=== PATIENT | male | born 1935 | race Caucasian/White ===

== ENCOUNTER 2019-09-21 18:47 | Inpatient (IN) ==
[2019-09-21] MEDS ORDERED: ALUMINUM/MAGNESIUM SUSP 30 ML UDC PO PRN (20:07)
[2019-09-21] MEDS ORDERED: ONDANSETRON INJ 2 MG/ML 2 ML VIAL IV PRN (20:07)
[2019-09-21] MEDS ORDERED: POLYETHYLENE (MIRALAX) 17 GM PACK PO PRN (20:07)
[2019-09-21] MEDS ORDERED: NITROGLYCERIN SL 0.4 MG/TAB TAB SL PRN (20:07)
--- NOTE | 2019-09-21 20:07 | History & Physical Report ---
Date of Service September 21, 2019 Assessment & Plan (1) Acute kidney injury: Patient has acute kidney injury and typically takes Bumex and captopril. These medications are held. Given the onset of his edema on presentation we will only use very low flow IV fluid overnight and reassessing his renal function in the morning. We will check a urine for active sediment. If his renal function does not improve perhaps a renal ultrasound could evaluate for chronic kidney disease or obstructive uropathy as he is of the age to possibly have that his bicarbonate is reasonable and his creatinine although 5.0 is not out of the normal range and as we hold his CAR inhibitor this may improve (2) Bradycardia: Regarding the patient's bradycardia verapamil and metoprolol will be held if hypertension becomes an issue we can use hydralazine. Patient will have a L[place] screen [place] have remember being tested for Lyme disease and that also did not notice a TSH on his intake labs. His electrolytes are replete otherwise. 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 He typically only wears oxygen at night he does typically however take inhalers including Advair Serevent and as needed albuterol as needed these will be continued. (4) GERD (gastroesophageal reflux disease): Currently his reflux disease is on Protonix 40 (5) Sleep apnea: Patient says he wears a CPAP machine at night cannot recall his Pott's pressure of water but he does have 2 L bleed in oxygen which we will continue here (6) Coronary artery disease: Patient recalls having a cardiac stent about 3 years ago. He is on aspirin and Plavix these will be continued as well as atorvastatin 80 for sec ondary risk prevention both for cardiovascular and cerebrovascular disease. However we are holding his beta-devon at this time I will be back up IV metoprolol if needed if the patient does run fast (7) Hypertension: For the patient's history of hypertension many of his antihypertensive medications are going to be held at this time we will offer hydralazine as needed and PRN metoprolol. He will however continue on his Hytrin at bedtime which could help with any urinary outflow tract obstruction (8) History of CVA (cerebrovascular accident): Patient has a history of stroke he says he had complete recovery he will maintain his antiplatelet agents and statin (9) Sarcoidosis: (10) DVT prophylaxis: Heparin to be used for DVT prophylaxis with concern for renal dysfunction (11) Colon cancer: (12) History of Billroth I operation: Admission and Anticipated Discharge Date Admission Date: September 21, 2019 History of Present Illness Primary Care Provider: Joss Vasques 84-year-old male answer from [place] emergency department where he presented with dizziness was found to have slightly worsening renal function with a creatinine 2.4 and be a junctional bradycardia at a rate of 50 with a sustained blood pressure. According to the emergency room doctor the tester rocket engine/hospitalist on duty did not feel comfortable keeping the patient in their facility they did not have access to specialist and requested transfer. Emergency room doctor conversed with me and said the patient was stable at this point time did not require any immediate attention and did recommend possibly hydrating the patient and following his laboratories at their facility however this was refused. I did accept the patient for observation I was concerned that this was a lateral transfer. Patient self is in no distress he is doing slightly better than when he presented to the emergency department their work-up included laboratories which showed a creatinine of 2.4 potassium 5.0 bicarb 26 stable CBC stable liver function tests normal magnesium negative troponin EKG with sinus bradycardia narrow complex a BNP of 1080 CT head negative for acute changes but with chronic volume loss Dopplers of lower extremities without DVT as patient has some swelling in his right leg which is chronic and a chest x-ray showing old scarring changes from his history of sarcoidosis. Past Med/Surg History Family History (Updated 09/21/19 @ 20:01 by Reji Wang MD) Father Coronary heart disease Social History (Updated 09/21/19 @ 20:01 by Reji Wang MD) current occupational status: retired Feels Safe at Home: Yes Smoking Status: Never smoker Hx Alcohol Use: No Review of Systems Review of Systems: Mild distress and fatigue complaints of some lightheadedness no headache, blurry or double vision no speech or swallowing issues no chest pain, pressure or palpitations He does have some baseline shortness of breath, but no cough or wheezes no abdominal pain, nausea or vomiting, diarrhea or constipation no dysuria, hematuria or frequency no focal joint pain has baseline right lower extremity swelling for many years no back pain or cva tenderness Patient has some recent right lower extremity wounds no focal signs of weakness or numbness or altered sensation no complaints or anxiety or depression. Physical Exam Physical Exam: The patient appeared well nourished and normally developed. He has some mild tachypnea at rest which he says is normal for him Vital signs as documented. Head exam is normocephalic atraumatic no scleral icterus Neck is without JVD, thyromegaly, or carotid bruits. Lungs are clear to auscultation, no focal loss of breath sounds Cardiac exam, bradycardic cardiac with a easily heard gallop and systolic ejection murmur Abdominal exam reveals normal bowel sounds, soft non tender, no masses Extremities are mild to moderately edematous right greater than left and both pedal pulses are normal. Neurologic exam is alert and oriented, no focal loss of strength or sensation Skin is with bruising and some open areas to the anterior right chambers with dressing in place chronic venous stasis changes is also seen to his lower extremities Psychologically is without concerns for anxiety or depression PG Care Time/CCT Total # of Minutes Spent Total Time Spent with Patient: Total time spent is greater than 50% in coordination of care (as documented) at patient's floor/unit and/or counseling patient: Coding Level of Care Code 78385 OBS Care - Level 3 Diagnoses Acute kidney injury N17.9 Bradycardia R00.1 Chronic respiratory failure with hypoxia J96.11 GERD (gastroesophageal reflux disease) K21.9 Sleep apnea G47.30 Coronary artery disease I25.10 Hypertension I10 History of CVA (cerebrovascular accident) Z86.73 Sarcoidosis D86.9 DVT prophylaxis Z29.9 Colon cancer C18.9 History of Billroth I operation Z98.890
[2019-09-21] MEDS ORDERED: METOPROLOL TARTRATE 1 MG/ML VIAL IV PRN (20:10)
[2019-09-21] MEDS ORDERED: SODIUM CHLORIDE 0.9% 1000ML 1,000 ML IV SCH (20:15)
[2019-09-21] MEDS ORDERED: PATIENT'S ALLERGY INFO NEEDS ENTERED SCH (20:30)
[2019-09-21] MEDS ORDERED: PATIENT'S HEIGHT AND/OR WEIGHT NEEDED SCH (20:30)
[2019-09-21] MEDS ORDERED: IPRATROPIUM BROMIDE/ALBUTEROL respimat INH INH SCH (21:00)
[2019-09-21] MEDS: ACETAMINOPHEN 325 MG TAB PO PRN (22:12)
[2019-09-21] MEDS: HEPARIN SOD 5,000 UNIT/0.5 ML VIAL SQ SCH (23:06)
[2019-09-22] MEDS: IPRATROPIUM BROMIDE HFA INHALER INH SCH ×5 (01:22→18:57)
[2019-09-22] MEDS: ALBUTEROL HFA 8 GM INHALER INH SCH ×5 (01:23→18:58)
[2019-09-22 02:25] LABS: Eosinophils # (auto) 0.04 K/uL (0-0.5); Eosinophils % (auto) 0.7 %; Hematocrit (blood only) 35.3 % (42-52); Hemoglobin 11.6 g/dL (14.0-18.0); Immature Granulocytes # (auto) 0.02 K/uL (0.00-0.02); Immature Granulocytes % (auto) 0.4 %; Lymphocytes # (auto) 0.78 K/uL (1.2-3.4); Lymphocytes % (auto) 14.2 %; Mean Corpuscular Hemoglobin 32.5 pg (25-34); Mean Corpuscular Hgb Conc 32.9 g/dL (32-36); Mean Corpuscular Volume 98.9 fL (80-100); Mean Platelet Volume 9.6 fL (7.4-10.4); Monocytes # (auto) 0.48 K/uL (0.11-0.59); Monocytes % (auto) 8.7 %; Neutrophils # (auto) 4.19 K/uL (1.4-6.5); Platelet Count 100 K/uL (130-400); RDW Coefficient of Variation 15.5 % (11.5-14.5); RDW Standard Deviation 55.8 fL (36.4-46.3); Red Blood Count 3.57 M/uL (4.7-6.1); White Blood Count 5.51 K/uL (4.8-10.8)
[2019-09-22 02:39] LABS: BUN Creatinine Ratio 15.4 (10-20); Calcium 8.1 mg/dl (8.5-10.1); Creatinine Clr Calc Pharmacy 20.1 ml/min; Est GFR (African American) 25.6; Est GFR (Non-African American) 22.1; Magnesium 2.4 mg/dl (1.8-2.4); Potassium 4.7 mmol/L (3.5-5.1)
[2019-09-22 02:50] LABS: Phosphorus 4.9 mg/dl (2.5-4.9); Thyroid Stimulating Hormone 2.09 uIu/ml (0.300-4.500)
[2019-09-22 04:01] LABS: Appearance Urine Cloudy (Clear); Bilirubin Urine Negative (Negative); Blood Urine Negative (Negative); Color Urine Dark Yellow; Epithelial Cell Urine Auto >30 /lpf (0-5); Glucose Urine UA Negative (Negative); Ketones Urine Trace (Negative); Leukocyte Esterase Urine 2+ (Negative); Nitrite Urine Negative (Negative); Protein Urine Negative (Negative); Urobilinogen Urine Negative (Negative); WBC Urine Automated >30 /hpf (0-5)
[2019-09-22 04:25] LABS: Calcium Oxalate Crystals Urine Present (None Prsent); Cast Urine Automated >30 /lpf (0-5)
[2019-09-22 04:26] LABS: Bacteria Urine Automated 1+ (Negative); RBC Urine Automated 0-4 /hpf (0-4)
[2019-09-22 06:47] LABS: BUN Creatinine Ratio 15.5 (10-20); Calcium 8.4 mg/dl (8.5-10.1); Creatinine Clr Calc Pharmacy 22.8 ml/min; Est GFR (African American) 29.4; Est GFR (Non-African American) 25.4
[2019-09-22 06:57] LABS: Thyroid Stimulating Hormone 1.54 uIu/ml (0.300-4.500)
[2019-09-22] MEDS: ASPIRIN 81 MG ECTAB PO SCH (07:53)
[2019-09-22] MEDS: FLUTICASONE/VILANTEROL 100/25MCG 14 PUFFS/INHALER INH SCH (07:53)
[2019-09-22] MEDS: HEPARIN SOD 5,000 UNIT/0.5 ML VIAL SQ SCH ×2 (07:53→20:44)
[2019-09-22] MEDS: CLOPIDOGREL BISULFATE 75 MG TAB PO SCH (07:54)
[2019-09-22 08:07] LABS: Lyme Ab IgG w/WB Rflx Negative (Negative); Lyme Ab IgM w/WB Rflx Negative (Negative)
[2019-09-22] MEDS ORDERED: PANTOprazole 40 MG TAB PO SCH (09:00)
--- NOTE | 2019-09-22 09:31 | CT Scan Report ---
ABDOMEN AND PELVIS CT WITHOUT CONTRAST CT DOSE: 695.20 mGy.cm HISTORY: Acute kidney injury. acute kidney injury, eval renal stone/obstruction TECHNIQUE: Multiaxial CT images of the abdomen and pelvis were performed without contrast. A dose lo wering technique was utilized adhering to the principles of ALARA. COMPARISON STUDY: None. FINDINGS: Small bilateral pleural effusions. Pleural thickening with increased enhancement is noted t he right lung base which is favored to be a chronic etiology. Calcified hilar and subcarinal lymph no louise compatible with prior granulomatous disease. Parenchymal calcifications of the right lung base ar e also noted with groundglass, interstitial and alveolar opacities suggestive of atelectasis with ple ural parenchymal scarring. Additionally, there is mild right greater than left intralobular septal th ickening. Scattered bibasilar pulmonary nodules measure up to 4 mm. Extensive coronary artery calcifi cations. Cardiomegaly. Trace pericardial effusion. There is no pneumatosis or pneumoperitoneum identi fied. Spleen is enlarged measuring up to 15.2 cm. Indeterminate 1.2 cm hypodense lesion involves the superi or medial aspect of the spleen on image 21 series 2. Limited evaluation of the solid abdominal organs without the use of IV contrast. The liver, adrenal glands and pancreas appear unremarkable. Cholelit hiasis without definite CT evidence of acute cholecystitis. There is trace free fluid noted within th e mekhi hepatis and also within the bilateral pericolic gutters. Bilateral cortical thinning of the kidneys with nonspecific bilateral perinephric stranding. Probable cyst of the superior pole left kidney posteriorly, 2.5 cm. Probable cyst of the inferior pole left k idney, 3.5 cm. Probable cyst of the inferior pole right kidney. No ureteral calculi or obstructive ur opathy. Decompressed or bladder with mild wall thickening and trabeculation. Mild prostamegaly. Small fat filled right inguinal hernia. Extensive calcified plaque of the abdominal aorta. There is wall thickening with apparent peripheral calcifications noted within the distribution of the gastric pylorus, image 113 series 3. Mild adjacent stranding with a few prominent lymph nodes measur ing up to 8 mm. Small lateral diverticulum. No bowel obstruction. Mild fecal retention. Colonic diver ticulosis without acute diverticulitis. Postoperative changes of the right hemicolon suggestive of pa rtial right hemicolectomy with ileocolic anastomosis. Mild body wall edema. Tiny fat filled periumbil ical hernia. Bones appear intact. Degenerative changes of the spine, pelvis and hips. IMPRESSION: 1. No renal calculi or obstructive uropathy. 2. Mild prostamegaly. Partial distention of the urinary bladder with wall thickening suggests sequela of chronic bladder outlet obstruction. Correlate with urinalysis. 3. Wall thickening with mild surrounding stranding involves the gastric pylorus. Additionally, there are adjacent mildly prominent lymph nodes. This finding may reflect an area of gastritis, however cou ld be evaluated with endoscopy to exclude an underlying mucosal lesion. 4. No bowel obstruction. 5. Colonic diverticulosis without acute diverticulitis. 6. Small pleural effusions. Pleural thickening and enhancement of the right lung base may be on a chr onic basis. 7. Prior granulomatous disease. 8. Interstitial, groundglass and alveolar opacities of the right lung base are suggestive of probable atelectasis with pleural parenchymal scarring. A superimposed infectious or inflammatory pneumonitis would be difficult to exclude. 9. Cholelithiasis. 10. Additional findings as above. ACT 112: Negative or not required by law. The above report was generated using voice recognition software. It may contain grammatical, syntax o r spelling errors. Electronically signed by: Josiah Henson M.D. 09/22/2019 9:30 AM
--- NOTE | 2019-09-22 12:18 | Electrocardiogram Report ---
Test Reason : Blood Pressure : / mmHG Vent. Rate : 072 BPM Atrial Rate : 072 BPM P-R Int : 258 ms QRS Dur : 110 ms QT Int : 472 ms P-R-T Axes : 083 091 017 degrees QTc Int : 516 ms Sinus rhythm with 1st degree A-V block Rightward axis Prolonged QT Abnormal ECG When compared with ECG of 22-SEP-2019 01:33, (unconfirmed) Sinus rhythm has replaced Atrial fibrillation Vent. rate has increased BY 25 BPM Confirmed by Froy Hood ([id number]) on 09/22/2019 12:18:14 PM Referred By: Reji Wang Confirmed By:Froy Hood
--- NOTE | 2019-09-22 12:18 | Electrocardiogram Report ---
Test Reason : Blood Pressure : / mmHG Vent. Rate : 047 BPM Atrial Rate : 047 BPM P-R Int : 000 ms QRS Dur : 102 ms QT Int : 554 ms P-R-T Axes : 000 079 028 degrees QTc Int : 490 ms Poor data quality, interpretation may be adversely affected Atrial fibrillation with slow ventricular response Prolonged QT Abnormal ECG No previous ECGs available Confirmed by Froy Hood ([id number]) on 09/22/2019 12:18:07 PM Referred By: Reji Wang Confirmed By:Froy Hood
--- NOTE | 2019-09-22 12:43 | Hospitalist Progress Note ---
Date of Service September 22, 2019 Assessment & Plan (1) Atrial fibrillation with slow ventricular response: when patient presented to [facility] he was bradycardic. he had been taking large doses of metoprolol and verapamil at home. these meds were held upon arrival at [facility]. also upon arrival here he was in slow a.fib. at some point last evening he converted to NSR but continued with brief episodes of junctional rhythm. will ask [facility] Cardiology to consult regarding the slow a.fib, junctional rhythms, etc. will obtain echo to assess LV function as well as valve function given the loud murmur heard on exam. continue telemetry. continue to hold AV marilyn agents. K, mag, TSH, and lyme all noted to be normal. (2) Junctional rhythm: as above in "a fib" (3) Bradycardia: IMPROVED today with holding AV marilyn agents (metoprolol, verapamil). TSH wnl. lyme Ab's negative. see discussion above re: a.fib, etc. suspect his weakness, etc was due in part to the significant bradycardia seen yesterday. (4) Acute kidney injury: No obstruction seen on CT today. Cr modestly improved to 2.2 today following 1 L of saline overnight. Would not give additional fluids in light of CT showing pulmonary edema and low- normal O2 sats. His baseline Cr is uncertain. I have requested records from [facility] for comparison. Repeat BMP am. Cont to hold CAR inhibitor. (5) Sarcoidosis: Known h/o such. Follows with pulmonary in [place]. Check sed rate and crp in am. CT chest today appears to show old, chronic findings some of which might be 2nd to sarcoid. Will obtain records from pulmonary office in [place]. (6) GERD (gastroesophageal reflux disease): cont PPI but increase to BID dosing given the abnormal gastric wall seen on CT abd/pelvis today. (7) Sleep apnea: Cont CPAP at HS with O2 blended to maintain O2 sats >88% while sleeping. (8) Coronary artery disease: Cont asa. Cont plavix. Cont statin. stent in the past (3 yrs ago?). 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 metoprolol on hold due to bradycardia. no ischemic symptoms at this time. (9) Hypertension: Holding CAR inhibitor due to TANNER. Holding BB and CCB due to bradycardia. Could start amlodipine 5mg daily for BP control. (10) History of CVA (cerebrovascular accident): Confirmed by his son during my phone discussion. Cont asa, statin, and plavix for secondary prevention. (11) Colon cancer: s/p hemicolectomy. CT today shows clean anastomosis. (12) History of Billroth I operation: reason? details? son was unaware of this. (13) UTI (urinary tract infection): start rocephin daily follow culture (14) Abnormal chest CT: ?pneumonia process or are findings chronic? rocephin for UTI will cover for atypical coverage add doxy 100 BID (15) DVT prophylaxis: Heparin SC BID updated son by phone - Ed Miranda - 09/21 request PT, OT lm change observation status to full admission I certify that the inpatient services were ordered in accordance with Medicare regulations governing the order. This includes certification that hospital inpatient services are reasonable and necessary and in the case of services not specified as inpatient-only under 42 CFR 419.22(n), that they are appropriately provided as inpatient services in accordance to with the 2-midnight benchmark under 43 CFR 412.3(e) Admission and Anticipated Discharge Date Admission Date: September 21, 2019 Subjective patient feeling better today. he has good appetite, better energy, and simply feels more like himself. when I asked him what was bothering him yesterday he said "when I woke up yesterday I just didn't feel good." he could not be specific with what was ailing him. denies any dyspnea today. denies chest pain. denies abdominal pain. denies N/V. states he does NOT follow with a machine shop supervisor. does have case consultant in [facility] [address] [facility]? Review of Systems Constitutional: + fatigue; no fever, no chills and no anorexia Respiratory: no cough Cardiovascular: no chest pain Gastrointestinal: no abdominal pain, no nausea and no vomiting Physical Exam Constitutional: no acute distress and no altered mental status ENMT: external ear and nose normal, oropharynx normal Respiratory: no respiratory distress Auscultation: + diminished lung sounds (bases) and + crackles (fine, right base ) Cardiovascular: Rate/Rhythm: regular rate and regular rhythm Heart Sounds: normal S1, normal S2 and + murmur (3-4, holosystolic, Left mid sternal border ) Vessels: posterior tibial pulses present and dorsalis pedis pulses present; no JVD Extremities: no edema Gastrointestinal (Abdomen): normal bowel sounds, soft, nontender, no hepatosplenomegaly Inspection/Auscultation: + abdomen distended Skin: venous stasis changes b/l legs; 2 ulcerations on right distal chambers, both covered w/ optifoams Psychiatric: A+Ox3, euthymic affect Results & Data Results & Data ([facility]) Vital Signs (Past 12 Hours) Vital Signs Temp Pulse Pulse Pulse Resp BP BP 09/22/19 11:21 87 18 09/22/19 11:17 36.4 C L 80 20 153/74 H 09/22/19 09:00 09/22/19 08:00 70 09/22/19 07:32 36.2 C L 76 18 176/77 H 09/22/19 07:20 76 18 09/22/19 03:35 60 18 09/22/19 03:18 36.4 C L 55 L 20 125/74 09/22/19 01:28 18 09/22/19 01:27 44 L 18 09/22/19 01:18 36.6 C 45 L 45 L 18 Pulse Ox Pulse Ox 09/22/19 11:21 89 L 09/22/19 11:17 90 09/22/19 09:00 93 09/22/19 08:00 09/22/19 07:32 92 09/22/19 07:20 91 09/22/19 03:35 94 09/22/19 03:18 92 09/22/19 01:28 98 09/22/19 01:27 98 09/22/19 01:18 100 Laboratory Results Laboratory Results - last 24 hr 09/22/19 09/22/19 09/22/19 02:10 02:10 03:27 WBC 5.51 RBC 3.57 L Hgb 11.6 L Hct 35.3 L MCV 98.9 MCH 32.5 MCHC 32.9 RDW Std Deviation 55.8 H RDW Coeff of Gokul 15.5 H Plt Count 100 L MPV 9.6 Immature Gran % (Auto) 0.4 Neut % (Auto) 76.0 Lymph % (Auto) 14.2 [place] % (Auto) 8.7 Eos % (Auto) 0.7 Baso % (Auto) 0.0 Neut # (Auto) 4.19 Lymph # (Auto) 0.78 L [place] # (Auto) 0.48 Eos # (Auto) 0.04 Baso # (Auto) 0.00 Immature Gran # (Auto) 0.02 Sodium 143 Potassium 4.7 Chloride 112 H Carbon Dioxide 27 Anion Gap 4.0 BUN 39 H Creatinine 2.56 H Est Cr Clr Drug Dosing 20.1 Est GFR ( Amer) 25.6 Est GFR (Non-Af Amer) 22.1 BUN/Creatinine Ratio 15.4 Glucose 99 Calcium 8.1 L Phosphorus 4.9 Magnesium 2.4 TSH 2.090 Urine Color Dark Yellow Urine Appearance Cloudy A Urine pH 5.0 Ur Specific [place] 1.020 Urine Protein Negative Urine Glucose (UA) Negative Urine Ketones Trace H Urine Blood Negative Urine Nitrite Negative Urine Bilirubin Negative Urine Urobilinogen Negative Ur Leukocyte Esterase 2+ H Urine WBC (Auto) >30 H Urine RBC (Auto) 0-4 U Hyaline Cast (Auto) >30 H U Epithel Cells (Auto) >30 H Urine Bacteria (Auto) 1+ H Urine Crystals Not Reportable Calcium Oxalate Crystal Present A Lyme Disease IgG Ab Lyme Disease IgM Ab 09/22/19 09/22/19 05:25 05:25 WBC RBC Hgb Hct MCV MCH MCHC RDW Std Deviation RDW Coeff of Gokul Plt Count MPV Immature Gran % (Auto) Neut % (Auto) Lymph % (Auto) [place] % (Auto) Eos % (Auto) Baso % (Auto) Neut # (Auto) Lymph # (Auto) [place] # (Auto) Eos # (Auto) Baso # (Auto) Immature Gran # (Auto) Sodium 142 Potassium 4.0 Chloride 110 H Carbon Dioxide 25 Anion Gap 8.0 BUN 35 H Creatinine 2.28 H Est Cr Clr Drug Dosing 22.8 Est GFR ( Amer) 29.4 Est GFR (Non-Af Amer) 25.4 BUN/Creatinine Ratio 15.5 Glucose 92 Calcium 8.4 L Phosphorus Magnesium TSH 1.540 Urine Color Urine Appearance Urine pH Ur Specific [place] Urine Protein Urine Glucose (UA) Urine Ketones Urine Blood Urine Nitrite Urine Bilirubin Urine Urobilinogen Ur Leukocyte Esterase Urine WBC (Auto) Urine RBC (Auto) U Hyaline Cast (Auto) U Epithel Cells (Auto) Urine Bacteria (Auto) Urine Crystals Calcium Oxalate Crystal Lyme Disease IgG Ab Negative Lyme Disease IgM Ab Negative PG Care Time/CCT Total # of Minutes Spent Total Time Spent with Patient: Total time spent is greater than 50% in coordination of care (as documented) at patient's floor/unit and/or counseling patient: Coding Level of Care Code 32004 Subseq Hosp Care Lvl 3 Diagnoses Atrial fibrillation with slow ventricular response I48.91 Junctional rhythm I49.8 Bradycardia R00.1 Acute kidney injury N17.9 Sarcoidosis D86.9 GERD (gastroesophageal reflux disease) K21.9 Esophagitis presence: without esophagitis Sleep apnea G47.33 Sleep apnea type: obstructive Coronary artery disease I25.10 Coronary Disease-Associated Artery/Lesion type: [place] artery [place] vs. transplanted heart: [place] heart Associated angina: without angina Hypertension I10 Hypertension type: essential hypertension History of CVA (cerebrovascular accident) Z86.73 Colon cancer C18.9 Colon location: unspecified part of colon History of Billroth I operation Z98.890 UTI (urinary tract infection) N30.00 Urinary tract infection type: acute cystitis Hematuria presence: without hematuria Abnormal chest CT R93.89 DVT prophylaxis Z29.9 (1) GERD (gastroesophageal reflux disease) Esophagitis presence: without esophagitis Qualified Code(s): K21.9 - Gastro- esophageal reflux disease without esophagitis (2) Sleep apnea Sleep apnea type: obstructive Qualified Code(s): G47.33 - Obstructive sleep apnea (adult) (pediatric) (3) Coronary artery disease Coronary Disease-Associated Artery/Lesion type: [place] artery [place] vs. transplanted heart: [place] heart Associated angina: without angina Qualified Code(s): I25.10 - Atherosclerotic heart disease of [place] coronary artery without angina pectoris (4) Hypertension Hypertension type: essential hypertension Qualified Code(s): I10 - Essential (primary) hypertension (5) Colon cancer Colon location: unspecified part of colon Qualified Code(s): C18.9 - Malignant neoplasm of colon, unspecified (6) UTI (urinary tract infection) Urinary tract infection type: acute cystitis Hematuria presence: without hematuria Qualified Code(s): N30.00 - Acute cystitis without hematuria
[2019-09-22] MEDS ORDERED: PERFLUTREN LIPID MICROSPHERE (DEFINITY) IV ONE (14:43)
--- NOTE | 2019-09-22 16:06 | CT Scan Report ---
CT chest wo con CT DOSE: 469.49 mGy.cm CLINICAL HISTORY: 84 years-old Male with known sarcoid, dyspnea, hypoxia. Acute hypoxia with reporte d known history of sarcoidosis TECHNIQUE: Multiaxial CT images of the chest were performed without contrast. A dose lowering techni que was utilized adhering to the principles of ALARA. COMPARISON: CT abdomen and pelvis of same day FINDINGS: Unremarkable thyroid. Calcified nonenlarged mediastinal and hilar lymph nodes. Moderate cardiomegaly with extensive coronary artery calcifications. Small pericardial effusion. Extensive calcified plaque the thoracic aorta without aneurysm. Markedly dilated main and left pulmonary artery measures up to 5.4 cm transversely. Small bilateral pleural effusions. Right-sided pleural thickening. Scattered pulmonary granulomata no pamela with multifocal reticular interstitial opacities. Mild right greater than left intralobular septa l thickening within a bibasilar predominant distribution. Architectural distortion with areas of irre gular subpleural consolidation suggestive of scarring with round atelectasis. No lobar airspace conso lidation typical for pneumonia. Multifocal traction bronchiectasis. No honeycombing. Central airways appear patent. No acute process of the imaged upper abdomen. Indeterminate hypodense lesion lesion of the superior s pleen, 1.2 cm. Splenomegaly. Colonic diverticulosis. Degenerative changes of the shoulders and spine. IMPRESSION: 1. Prior granulomatous disease compatible with patient's reported clinical history of sarcoidosis. Ch ronic interstitial lung disease is noted with multifocal pleural parenchymal scarring, architectural distortion and traction bronchiectasis. 2. Irregular consolidative opacities most pronounced in the right lung base are suggestive of round a telectasis admixed with fibrosis. 3. Mild intralobular septal thickening of the right greater than left lung bases may reflect a compon ent of pulmonary edema. 4. Small pleural effusions. 5. Likely chronic right lung base pleural thickening. 6. Cardiomegaly with marked dilation of the pulmonary artery compatible with pulmonary artery hyperte nsion. 7. Splenomegaly. ACT 112: Negative or not required by law. Electronically signed by: Josiah Henson M.D. 09/22/2019 4:05 PM
[2019-09-22] MEDS: cefTRIAXone SODIUM 2,000 MG in DEXTROSE 5% 50 ML IV SCH (16:43)
[2019-09-22] MEDS: DOXYCYCLINE HYCLATE 100 MG CAP PO SCH ×2 (16:43→20:44)
[2019-09-22] MEDS: ACETAMINOPHEN 325 MG TAB PO PRN (17:43)
[2019-09-22] MEDS ORDERED: AMLODIPINE BESYLATE 5 MG TAB PO ONE (18:45)
[2019-09-22] MEDS: PANTOprazole 40 MG TAB PO SCH (20:45)
[2019-09-22] MEDS: TERAZOSIN HCL 1 MG CAP PO SCH (20:45)
[2019-09-23 06:35] LABS: Hematocrit (blood only) 39.8 % (42-52); Hemoglobin 13.3 g/dL (14.0-18.0); Mean Corpuscular Hemoglobin 32.4 pg (25-34); Mean Corpuscular Hgb Conc 33.4 g/dL (32-36); Mean Corpuscular Volume 96.8 fL (80-100); Platelet Count 110 K/uL (130-400); RDW Coefficient of Variation 15.2 % (11.5-14.5); RDW Standard Deviation 53.8 fL (36.4-46.3); Red Blood Count 4.11 M/uL (4.7-6.1); White Blood Count 4.37 K/uL (4.8-10.8)
[2019-09-23 07:22] LABS: BUN Creatinine Ratio 20.3 (10-20); C Reactive Protein 5.4 mg/dl (0-0.29); Calcium 8.1 mg/dl (8.5-10.1); Creatinine Clr Calc Pharmacy 40.1 ml/min; Est GFR (African American) 58.6; Est GFR (Non-African American) 50.6; Potassium 3.6 mmol/L (3.5-5.1)
[2019-09-23] MEDS: IPRATROPIUM BROMIDE HFA INHALER INH SCH (07:32)
[2019-09-23] MEDS: ALBUTEROL HFA 8 GM INHALER INH SCH (07:32)
[2019-09-23] MEDS: AMLODIPINE BESYLATE 5 MG TAB PO SCH (07:39)
[2019-09-23] MEDS: FLUTICASONE/VILANTEROL 100/25MCG 14 PUFFS/INHALER INH SCH (07:39)
[2019-09-23] MEDS: HEPARIN SOD 5,000 UNIT/0.5 ML VIAL SQ SCH (07:39)
[2019-09-23] MEDS: ASPIRIN 81 MG ECTAB PO SCH (07:40)
[2019-09-23] MEDS: PANTOprazole 40 MG TAB PO SCH ×2 (07:40→19:52)
[2019-09-23] MEDS: DOXYCYCLINE HYCLATE 100 MG CAP PO SCH ×2 (07:40→19:52)
[2019-09-23] MEDS: CLOPIDOGREL BISULFATE 75 MG TAB PO SCH (07:40)
[2019-09-23] MEDS ORDERED: ALBUTEROL HFA 8 GM INHALER INH PRN (08:17)
[2019-09-23] MEDS ORDERED: IPRATROPIUM BROMIDE HFA INHALER INH PRN (08:17)
[2019-09-23] MEDS: METOPROLOL TARTRATE 25 MG TAB PO SCH ×2 (11:31→19:52)
--- NOTE | 2019-09-23 12:22 | Cardiology Consultation ---
Date of Consultation September 23, 2019 Assessment & Plan (1) Atrial flutter: (2) AV block: (3) Coronary artery disease: (4) S/P coronary artery stent placement: (5) Hypertension: (6) Bradycardia: (7) Tachy-mendy syndrome: (8) Junctional rhythm: ASSESSMENT/PLAN: 1. Atrial flutter: Currently in atrial flutter based on ECG findings. Asymptomatic. Will start metoprolol at 25 mg p.o. b.i.d.. Titrate upward for improved heart rate control. Recommend anticoagulation for stroke risk re duction. Recommend heparin drip while hospitalized. 2. Junctional rhythm/bradycardia/AV block: Outside ECG demonstrated what appears to be junctional rhythm. First ECG here demonstrated what appears to be sinus rhythm with AV block, possibly second-degree. After discontinuation of verapamil and metoprolol by primary service, he has since developed atrial flutter with rapid ventricular response. This suggests tachy-mendy syndrome. Consider pacemaker implantation. Will first try to achieve adequate rate control on 1 AV marilyn blocking agent in the meantime. Recommend electrophysiology consultation, which can be done tomorrow. 3. Tachy-mendy syndrome: Plan as above. Verapamil has been discontinued. Restarting low-dose beta-devon today. Consideration of pacemaker as above. 4. Hypertension: Blood pressure has been elevated, which is being addressed by primary service. Restart metoprolol. 5. CAD s/p PCI: Details not known at this time. He follows with Dr. Reyna. No angina or heart failure symptoms. Has been on dual anti-platelet therapy but while initiating anticoagulation therapy, can discontinue Plavix as his stent was greater than 1 year ago. Continue aspirin 81 mg daily indefinitely. Beta- devon as above. Recommend high-intensity statin therapy. 6. Disposition: Cardiology will continue to follow with electrophysiology consultation tomorrow. Patient care discussed with Dr. Saldaña of the primary hospitalist service. Thank you for allowing me to participate in the care of your patient. Please call for any other questions or concerns. Sincerely, Campos Rivera M.D. History of Present Illness Reason for Consultation: Atrial fibrillation and murmur Requesting Physician: Dr. Saldaña Attending Physician: Nito Lynn History of Present Illness Mr. Jean is a pleasant 84-year-old gentleman with a history significant for CAD s/p PCI, stroke, hypertension, sarcoidosis, colon cancer status post surgery, and sleep apnea on CPAP QHS. 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 He was transferred from [facility] with worsening renal function and bradycardia with a heart rate of 50 bpm. His initial creatinine was reported as 2.4. He admits that 3 days ago, he felt lightheaded nauseated, prompting him to go to his local emergency department. He feels much better now however and states that he feels Near his baseline. While here, he was administered IV fluids cautiously and his renal function has improved. His initial creatinine here was 2.56 and has since trended down to 1.29. He states that he has chronic but stable dyspnea with exertion. He denies orthopnea. He has chronic right lower extremity edema and states that currently his edema is better than his usual baseline. He denies chest pain, syncope, near-syncope, palpitations, or bleeding such as melena, hematochezia, or hematuria. At home he had been taking verapamil and metoprolol and these medications were held on presentation. Unfortunately, the doses of these medications are not known at the time of this note. Dr. Saldaña is awaiting Outside records to help clarify his medication doses. Fortunately, his bradycardia improved but then he developed atrial flutter as noted on this morning's ECG with mildly rapid ventricular response. His initial ECG here demonstrated a sinus mechanism with some degree of AV block, possibly second-degree. In regards to his cardiology history, he recalls undergoing PCI within the past few years. He also recalls prior stroke. He does not recall ever being diagnosed with atrial fibrillation or atrial flutter. He recalls taking aspirin and Plavix but no true anticoagulation. Review of systems: As above. Review of systems otherwise negative/unremarkab le. Family history: Father at the age of 73 with CAD. Brother at the age of 74 with CAD. Mother at the age of 52 of stroke. Social history: He denies smoking, alcohol, or drug abuse. He lives at home with his . He has 3 children but 1 . He has 2 remaining sons. He lives in [place]. 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 Allergies Allergy/AdvReac Type Severity Reaction Status Date / Time No Known Allergies Allergy Unverified 09/21/19 21:08 Patient History Medical History (Updated 09/23/19 @ 14:03 by Eliud Rivera MD) Chronic respiratory failure with hypoxia Colon cancer Coronary artery disease GERD (gastroesophageal reflux disease) History of CVA (cerebrovascular accident) Hypertension Sarcoidosis Sleep apnea Surgical History (Updated 09/23/19 @ 13:51 by Eliud Rivera MD) History of [place] I operation S/P coronary artery stent placement Family History (Updated 09/21/19 @ 20:01 by Reji Wang MD) Father Coronary heart disease Social History (Updated 09/21/19 @ 20:01 by Reji Wang MD) Preferred Language: [place]i Communication Ability: Effective Radio Performer Required: No Beliefs That Will Affect Care: None Current Living Situation: Spouse current occupational status: retired Other Information That Helps Us Care for You: No Feels Safe at Home: Yes Safety Concerns: Feels Safe At This Time Smoking Status: Never smoker Do You Dip or Chew Tobacco: No ; Second Hand Exposure: No ; Tobacco Cessation Education Requested by Patient: No Hx Alcohol Use: No Hx Substance Use: No Physical Exam Physical Exam: Gen.: No acute distress. Alert. HEENT: Anicteric sclera. Neck: No JVD. No bruits. Normal carotid upstrokes bilaterally. Cardiac: PMI was nonpalpable . No ventricular heave. Irregularly irregular and mildly tachycardic. Normal S1-S2. No obvious murmurs, rubs, or gallops. Pulmonary: Decreased breath sounds, but otherwise clear to auscultation bilaterally without wheezes, rales, or rhonchi. Abdomen: Soft, nontender, nondistended, with normoactive bowel sounds. No bruits noted. Extremities: 2+ radial pulses bilaterally. 2+ posterior tibialis pulses bilaterally. 1+ right lower extremity edema. No cyanosis. No palpable cords. Psychiatric: Affect appears appropriate. Results & Data ([facility]) Vital Signs (Past 12 Hours) Vital Signs Temp Pulse Pulse Resp BP BP Pulse Ox 09/23/19 11:14 36.6 C 111 H 18 186/96 H 93 09/23/19 09:22 144/83 H 09/23/19 08:00 103 H 09/23/19 07:56 36.5 C 102 H 18 183/85 H 93 09/23/19 07:35 114 H 18 94 09/23/19 03:44 36.7 C 101 H 18 144/82 H 96 09/23/19 03:16 101 H 14 95 09/23/19 01:38 110 H Pulse Ox 09/23/19 11:14 09/23/19 09:22 09/23/19 08:00 93 09/23/19 07:56 09/23/19 07:35 09/23/19 03:44 09/23/19 03:16 09/23/19 01:38 Laboratory Results Laboratory Results - last 24 hr 09/23/19 09/23/19 09/23/19 06:00 06:00 06:00 WBC 4.37 L RBC 4.11 L Hgb 13.3 L Hct 39.8 L MCV 96.8 MCH 32.4 MCHC 33.4 RDW Std Deviation 53.8 H RDW Coeff of Gokul 15.2 H Plt Count 110 L MPV 10.0 ESR 33 H Sodium 145 Potassium 3.6 Chloride 113 H Carbon Dioxide 27 Anion Gap 5.0 BUN 26 H Creatinine 1.29 D Est Cr Clr Drug Dosing 40.1 Est GFR ( Amer) 58.6 Est GFR (Non-Af Amer) 50.6 BUN/Creatinine Ratio 20.3 H Glucose 87 Calcium 8.1 L C-Reactive Protein 5.40 H Diagnostic Findings Telemetry personally reviewed: Developed AFib/flutter on 09/22/2019 at 4:28 p.m. ECGs personally reviewed: ECG 09/21/2019 at outside hospital: Probable junctional rhythm at 55 bpm. Nonspecific T-wave abnormality. ECG 09/22/2019 at 1:33 a.m.: Sinus rhythm with AV block, possibly type 2 AV block (mechanism not known). The rhythm is NOT atrial fibrillation. ECG 09/22/2019 at 6:54 a.m.: Sinus rhythm with first-degree AV block at 72 bpm. Prolonged QT. ECG 09/23/2019: Atrial flutter at [address]/T-wave abnormality. Echo 09/23/2019: Normal LV size, wall motion, systolic function. EF 60-65%. Moderate LVH. Moderate biatrial dilation. Mildly elevated transvalvular velocity across the pulmonic valve, without suggestion of significant stenosis. CT chest 09/22/2019: Prior granulomatous disease compatible with reported sarcoidosis per Radiology. Chronic interstitial lung disease. Small pleural effusions. Marked dilation of pulmonary artery compatible with pulmonary artery hypertension per Radiology. Irregular consolidative opacities pronounced in the right lung base. Medications Administered Current Inpatient Medications Acetaminophen (Tylenol) 650 mg PO Q4H PRN PRN Reason: pain/fever Stop: 10/21/19 20:06 Last Admin: 09/23/19 13:07 Dose: 650 mg Documented by: Al Hydrox/Mg Hydrox/Simethicone (Maalox) 30 ml PO Q6H PRN PRN Reason: Dyspepsia Stop: 10/21/19 20:06 Albuterol (Ventolin Hfa) 1 puffs INH QIDR PRN PRN Reason: Shortness Of Breath Or Wheezing Stop: 10/22/19 06:59 Amlodipine Besylate (Norvasc) 5 mg PO QAM ON LICENSE OF [facility] Stop: 10/23/19 08:59 Last Admin: 09/23/19 07:39 Dose: 5 mg Documented by: Aspirin (Ecotrin Ectab) 81 mg PO QAM ON LICENSE OF [facility] Stop: 10/22/19 08:59 Last Admin: 09/23/19 07:40 Dose: 81 mg Documented by: Clopidogrel Bisulfate (Plavix) 75 mg PO QAM ON LICENSE OF [facility] Stop: 10/22/19 08:59 Last Admin: 09/23/19 07:40 Dose: 75 mg Documented by: Doxycycline Hyclate (Vibramycin) 100 mg PO BID ON LICENSE OF [facility] Stop: 09/29/19 16:24 Last Admin: 09/23/19 07:40 Dose: 100 mg Documented by: Fluticasone/Vilanterol (Breo Ellipta 100/25 Mcg Inh) 1 puffs INH DAILY ON LICENSE OF [facility] Stop: 10/22/19 08:59 Last Admin: 09/23/19 07:39 Dose: 1 puffs Documented by: Hydralazine HCl (Hydralazine Hcl) 10 mg IV Q8 PRN PRN Reason: Blood Pressure - High Stop: 10/21/19 20:09 Ceftriaxone Sodium 2,000 mg/ (Dextrose) 70 mls @ 100 mls/hr IV Q24H ON LICENSE OF [facility]; Protocol Stop: 09/29/19 15:59 Last Infusion: 09/22/19 17:30 Dose: Infused Documented by: Heparin Sodium/Dextrose (Heparin Sodium/Dextrose) 25,000 units in 500 mls @ 24 mls/hr IV .[id number] ON LICENSE OF [facility]; Protocol Stop: 10/23/19 12:29 Last Admin: 09/23/19 12:56 Dose: 1,200 units/hr, 24 mls/hr Documented by: Ipratropium [place] (Atrovent Hfa) 1 puffs INH QIDR PRN PRN Reason: Shortness Of Breath Or Wheezing Stop: 10/22/19 06:59 Metoprolol Tartrate (Lopressor) 5 mg IV Q4 PRN PRN Reason: sbp> 185, dbp >95, HR >120 Stop: 10/21/19 20:09 Metoprolol Tartrate (Lopressor) 25 mg PO BID ON LICENSE OF [facility] Stop: 10/23/19 11:14 Last Admin: 09/23/19 11:31 Dose: 25 mg Documented by: Nitroglycerin (Nitrostat) 0.4 mg SL UD PRN PRN Reason: Chest Pain Stop: 10/21/19 20:06 Ondansetron HCl (Zofran) 4 mg IV Q6H PRN PRN Reason: Nausea Stop: 10/21/19 20:06 Pantoprazole Sodium (Protonix) 40 mg PO BID ON LICENSE OF [facility] Stop: 10/22/19 20:59 Last Admin: 09/23/19 07:40 Dose: 40 mg Documented by: Polyethylene Glycol (Miralax Powder Packet) 17 gm PO DAILY PRN PRN Reason: Constipation Stop: 10/21/19 20:06 Terazosin HCl (Hytrin) 1 mg PO HS ON LICENSE OF [facility] Stop: 10/22/19 20:59 Last Admin: 09/22/19 20:45 Dose: 1 mg Documented by: PG Care Time/CCT Total # of Minutes Spent Total Time Spent with Patient: Total time spent is greater than 50% in coordination of care (as documented) at patient's floor/unit and/or counseling patient: Coding Level of Care Code 56583 Initial Inpt Care Lvl 3 Diagnoses Atrial flutter I48.92 AV block I44.30 Coronary artery disease I25.10 Coronary Disease-Associated Artery/Lesion type: [place] artery [place] vs. transplanted heart: [place] heart Associated angina: without angina S/P coronary artery stent placement Z95.5 Hypertension I10 Hypertension type: essential hypertension Bradycardia R00.1 Tachy-mendy syndrome I49.5 Junctional rhythm I49.8 (1) Coronary artery disease Coronary Disease-Associated Artery/Lesion type: [place] artery [place] vs. transplanted heart: [place] heart Associated angina: without angina Qualified Code(s): I25.10 - Atherosclerotic heart disease of [place] coronary artery without angina pectoris (2) Hypertension Hypertension type: essential hypertension Qualified Code(s): I10 - Essential (primary) hypertension
[2019-09-23] MEDS ORDERED: Heparin IV Standard *NO* Bolus IV SCH (12:23)
[2019-09-23] MEDS: HEPARIN SODIUM/DEXTROSE 25,000 UNITS/500 ML BAG IV SCH (12:56)
[2019-09-23] MEDS: ACETAMINOPHEN 325 MG TAB PO PRN (13:07)
--- NOTE | 2019-09-23 13:39 | XCELERA ---
[id number]
--- NOTE | 2019-09-23 15:16 | Ultrasound Report ---
US arterial duplex LE BI CLINICAL HISTORY: Arterial insufficiency COMPARISON STUDY: No previous studies for comparison. FINDINGS: Ankle brachial indices were calculated to measure 1.2 on the right and 1.1 on the left. On the right, there was triphasic flow within the common femoral, and superficial femoral arteries. T here was biphasic flow within the popliteal artery. There was triphasic flow within the right anterio r tibial posterior tibial and peroneal artery. The right dorsalis pedis was monophasic. No high veloc ity jets were visualized on the right. On the left there was biphasic flow within the common femoral, superficial femoral and popliteal rosa ian. There was biphasic flow within the anterior tibial, and posterior tibial arteries on the left. There was triphasic flow within the left peroneal artery. No high velocity jets were visualized. IMPRESSION: No evidence of hemodynamically significant lower extremity arterial stenosis. ACT 112: Negative or not required by law. Electronically signed by: Camron Jolly M.D. 09/23/2019 3:14 PM
[2019-09-23] MEDS: HydrALAZINE HCL 20 MG/ML VIAL IV PRN (15:22)
--- NOTE | 2019-09-23 15:27 | Hospitalist Progress Note ---
Date of Service September 23, 2019 Assessment & Plan (1) Tachy-mendy syndrome: 84-year-old M with PMH CAD s/p PCI, stroke, hypertension, sarcoidosis, colon cancer status post surgery, and sleep apnea on CPAP QHS presents from [facility] with concerns of bradycardia and dizziness, now found to be in A flutter. A flutter w/ RVR -admit to telemetry -K, mag, TSH, and lyme all noted to be normal -apparently pt had been taking large doses of metoprolol and verapamil at home, unsure exact dose. Held this admission 2/2 concerns of bradycardia. Upon arrival here he was in slow a.fib -started on metoprolol at 25 mg p.o. b.i.d.. Titrate upward for improved heart rate control -AC with Heparin gtt. Will transition to orals moving forward -ECHO- Normal left ventricular size and systolic function. EF 6065%. No regional wall motion abnormalities visualized. Moderate concentric left ventricular hypertrophy. No significant valvular stenosis/regurgitation. -Appreciate Cardiology consult Junctional Rhythm/Bradycardia/Tachy-mendy syndrome -suspect his weakness was due in part to the significant bradycardia seen on admission - holding home AV marilyn agents metoprolol, verapamil. Has since developed a flutter with RVR suggesting tachy mendy syndrome - Consideration for pacemaker implantation to be done tomorrow -AV marilyn blocking agent with metoprolol as above. Will cont hold verapamil TANNER- resolved -Likely from hypoperfusion secondary to bradycardia - No obstruction seen on CT today -requested records from [facility] for comparison. -daily BMP -Can restart CAR inhibitor on d/c. He to ascertain the exact medication and dose as patient is unsure CAD/CVA Hx -asymptomatic -Cont asa 81, atorvastatin 40, metoprolol as above -DC plavix as his stent was greater than 1 year ago -AC as above -follows with Dr. Reyna HTN -Holding CAR inhibitor due to TANNER initially, this can now be restarted. Unsure of home dose. Started on amlodipine 5mg daily in interim -Holding CCB due to bradycardia. Metroprolol as above Sarcoidosis: -Follows with pulmonary in [place] -CT chest appears to show old, chronic findings some of which might be 2/2 sarcoid. ?pneumonia process vs are findings chronic -CRP elevated at 5.4 -have requested records from pulmonary office in [place] to compare any old CT scans , pending -rocephin (UTI) and doxy 100 bid coverage GERD -cont PPI but increase to BID dosing given the abnormal gastric wall seen on CT abd/pelvis Sleep apnea: -Cont CPAP at HS with O2 blended to maintain O2 sats >88% while sleeping. Colon cancer: -s/p hemicolectomy. -CT Abd shows clean anastomosis. History of Billroth I operation: -CT Abd: Wall thickening with mild surrounding stranding involves the gastric pylorus. Additionally, there are adjacent mildly prominent lymph nodes. This finding may reflect an area of gastritis -will arrange for outpt GI so that can possibly evaluate with endoscopy to exclude an underlying mucosal lesion UTI -cont rocephin daily -Culture growing Staphylococcus species. Sensitivities to follow. FEN/GI: HH Diet. NPO for any possible cardiac intervention tomorrow. DVT prophylaxis: Heparin SC BID Full Code Dispo: Med Tele. PT/OT Evals. Admission and Anticipated Discharge Date Admission Date: September 22, 2019 Supervising Physician Co-Signing Physician Notes Resident Supervision Note & Attestation: Pt seen/examined, chart reviewed, care plan d/w PGY3 Dr Agustin Polanco. I agree w/ the lyles components of his documentation. During my rounds patient was tearful, stating "I want to go home." In the same sentence he then said "I just don't feel good - I'm not sick, but I just don't feel good." He looked dyspneic during my visit, and he endorsed shortness of breath. Tele - a. flutter w/ RVR. Exam - gen - dyspneic, tearful neck - no obvious JVD heart - tachy, irregular, s1 s2, 2/6 systolic murmur LSB lungs - mild rales bases, a little louder RLL abd - protuberant, BS+, NT ext - 1+ edema right, <1+ left; pulses 1+ b/l skin - optifoams in place right chambers A/P: 1. acute kidney injury - resolving nicely w/ supportive care; suspect prerenal from cardiac issues as below 2. bradycardia - 2nd to high-grade AV block (vs junctional rhythm) - bradycardia resolved 3. now tachycardic - 2nd to a.flutter with RVR 4. h/o sarcoid 5. dyspnea 6. h/o CAD 7. UTI 8. ?pneumonia process appreciate cardiology consult appears to have had AV block in setting of tachy-mendy syndrome - EP consult w/ Dr Robles requested; may need pacer start heparin drip for a flutter dyspnea - mild pulmonary edema noted on CT chest - bumex x 1 now requested records and CT chest from pulmonary clinic in [place] to see how much of what we are noting on this admission's CT is old/chronic vs new UTI - rocephin ?pneumonia - rocephin/doxy Nito Lynn MD Subjective 84-year-old male found in bed this a.m. in no acute distress. No acute overnight events. Patient notes that he does not have any chest pain, shortness of breath, palpitations, syncope or near syncope. Awaiting echo today. EKG this a.m. shows A. fib with RVR. Patient tolerated p.o. intake. Patient with no other acute concerns or complaints. Review of Systems Review of Systems: All systems reviewed & are unremarkable except as noted in HPI & below Physical Exam Constitutional: WD/WN, vitals as above Eyes: PERRL, conjunctivae normal, anicteric sclerae ENMT: external ear and nose normal, oropharynx normal Respiratory: normal respiratory effort; no respiratory distress Auscultation: + crackles (mild RLL) Cardiovascular: Rate/Rhythm: + tachycardic and + irregularly irregular Heart Sounds: + murmur (LSB holosystolic) Gastrointestinal (Abdomen): Inspection/Auscultation: + abdomen distended and normal bowel sounds Percussion/Palpation: abdomen nontender Skin: + mottling (chronic venous stasis changes LE b/l) Psychiatric: A+Ox3, euthymic affect Results & Data Results & Data ([facility]) Vital Signs (Past 12 Hours) Vital Signs Temp Pulse Pulse Resp BP BP Pulse Ox 09/23/19 15:11 36.9 C 111 H 19 160/100 H 91 09/23/19 14:33 95 09/23/19 13:01 09/23/19 11:14 36.6 C 111 H 18 186/96 H 93 09/23/19 09:22 144/83 H 09/23/19 08:00 103 H 09/23/19 07:56 36.5 C 102 H 18 183/85 H 93 09/23/19 07:35 114 H 18 94 09/23/19 03:44 36.7 C 101 H 18 144/82 H 96 Pulse Ox Pulse Ox 09/23/19 15:11 09/23/19 14:33 09/23/19 13:01 95 09/23/19 11:14 09/23/19 09:22 09/23/19 08:00 93 09/23/19 07:56 09/23/19 07:35 09/23/19 03:44 Laboratory Results Laboratory Results - last 24 hr 09/23/19 09/23/19 09/23/19 06:00 06:00 06:00 WBC 4.37 L RBC 4.11 L Hgb 13.3 L Hct 39.8 L MCV 96.8 MCH 32.4 MCHC 33.4 RDW Std Deviation 53.8 H RDW Coeff of Gokul 15.2 H Plt Count 110 L MPV 10.0 ESR 33 H Sodium 145 Potassium 3.6 Chloride 113 H Carbon Dioxide 27 Anion Gap 5.0 BUN 26 H Creatinine 1.29 D Est Cr Clr Drug Dosing 40.1 Est GFR ( Amer) 58.6 Est GFR (Non-Af Amer) 50.6 BUN/Creatinine Ratio 20.3 H Glucose 87 Calcium 8.1 L C-Reactive Protein 5.40 H Medications Administered Current Inpatient Medications Acetaminophen (Tylenol) 650 mg PO Q4H PRN PRN Reason: pain/fever Stop: 10/21/19 20:06 Last Admin: 09/23/19 13:07 Dose: 650 mg Documented by: Al Hydrox/Mg Hydrox/Simethicone (Maalox) 30 ml PO Q6H PRN PRN Reason: Dyspepsia Stop: 10/21/19 20:06 Albuterol (Ventolin Hfa) 1 puffs INH QIDR PRN PRN Reason: Shortness Of Breath Or Wheezing Stop: 10/22/19 06:59 Amlodipine Besylate (Norvasc) 5 mg PO [facility] Stop: 10/23/19 08:59 Last Admin: 09/23/19 07:39 Dose: 5 mg Documented by: Aspirin (Ecotrin Ectab) [facility] [place] Stop: 10/22/19 08:59 Last Admin: 09/23/19 07:40 Dose: 81 mg Documented by: Doxycycline Hyclate (Vibramycin) 100 mg PO BID [facility] Stop: 09/29/19 16:24 Last Admin: 09/23/19 07:40 Dose: 100 mg Documented by: Fluticasone/Vilanterol (Breo Ellipta 100/25 Mcg Inh) 1 puffs INH DAILY [facility] Stop: 10/22/19 08:59 Last Admin: 09/23/19 07:39 Dose: 1 puffs Documented by: Hydralazine HCl (Hydralazine Hcl) 10 mg IV Q8 PRN PRN Reason: Blood Pressure - High Stop: 10/21/19 20:09 Last Admin: 09/23/19 15:22 Dose: 10 mg Documented by: Ceftriaxone Sodium 2,000 mg/ (Dextrose) 70 mls @ 100 mls/hr IV Q24H [facility]; Protocol Stop: 09/29/19 15:59 Last Infusion: 09/22/19 17:30 Dose: Infused Documented by: Heparin Sodium/Dextrose (Heparin Sodium/Dextrose) 25,000 units in 500 mls @ 24 mls/hr IV .[id number] [facility]; Protocol Stop: 10/23/19 12:29 Last Admin: 09/23/19 12:56 Dose: 1,200 units/hr, 24 mls/hr Documented by: Ipratropium [place] (Atrovent Hfa) 1 puffs INH QIDR PRN PRN Reason: Shortness Of Breath Or Wheezing Stop: 10/22/19 06:59 Metoprolol Tartrate (Lopressor) 5 mg IV Q4 PRN PRN Reason: sbp> 185, dbp >95, HR >120 Stop: 10/21/19 20:09 Metoprolol Tartrate (Lopressor) 25 mg PO BID [facility] Stop: 10/23/19 11:14 Last Admin: 09/23/19 11:31 Dose: 25 mg Documented by: Nitroglycerin (Nitrostat) 0.4 mg SL UD PRN PRN Reason: Chest Pain Stop: 10/21/19 20:06 Ondansetron HCl (Zofran) 4 mg IV Q6H PRN PRN Reason: Nausea Stop: 10/21/19 20:06 Pantoprazole Sodium (Protonix) 40 mg PO BID [facility] Stop: 10/22/19 20:59 Last Admin: 09/23/19 07:40 Dose: 40 mg Documented by: Polyethylene Glycol (Miralax Powder Packet) 17 gm PO DAILY PRN PRN Reason: Constipation Stop: 10/21/19 20:06 Terazosin HCl (Hytrin) 1 mg PO HS [facility] Stop: 10/22/19 20:59 Last Admin: 09/22/19 20:45 Dose: 1 mg Documented by: Resident Activity Tracking Resident Involvement: Resident Care Provided Care Provided: Adult Hospital Medicine
[2019-09-23] MEDS: cefTRIAXone SODIUM 2,000 MG in DEXTROSE 5% 50 ML IV SCH (15:57)
[2019-09-23] MEDS ORDERED: BUMETANIDE 1 MG TAB PO ONE (17:00)
[2019-09-23 19:48] LABS: Partial Thromboplastin Ratio 2.8
[2019-09-23 19:50] LABS: Partial Thromboplastin Time 78.5 Seconds (21.0-31.0)
[2019-09-23] MEDS: TERAZOSIN HCL 1 MG CAP PO SCH (19:52)
[2019-09-23] MEDS ORDERED: CALCIUM CARBONATE 500 MG CHEWABLE TAB PO ONE (22:26)
[2019-09-23] MEDS ORDERED: CALCIUM CARBONATE 500 MG CHEWABLE TAB ONE (22:30)
[2019-09-24 01:57] LABS: Partial Thromboplastin Ratio 2.7
[2019-09-24 02:00] LABS: Partial Thromboplastin Time 76.5 Seconds (21.0-31.0)
--- NOTE | 2019-09-24 06:12 | Electrocardiogram Report ---
Test Reason : Blood Pressure : / mmHG Vent. Rate : 112 BPM Atrial Rate : 000 BPM P-R Int : 000 ms QRS Dur : 100 ms QT Int : 368 ms P-R-T Axes : 000 095 -35 degrees QTc Int : 502 ms Atrial flutter with variable A-V block Rightward axis Nonspecific ST and T wave abnormality Prolonged QT Abnormal ECG When compared with ECG of 22-SEP-2019 06:54, Atrial flutter has replaced Sinus rhythm Vent. rate has increased BY 40 BPM Confirmed by Eliud Rivera ([id number]) on 09/24/2019 6:12:19 AM Referred By: Reji Wang Confirmed By:Eliud Rivera
--- NOTE | 2019-09-24 07:22 | Billing Data ---
Date of Service September 23, 2019 Coding Level of Care Code 90670 Subseq Hosp Care Lvl 3
[2019-09-24] MEDS: HydrALAZINE HCL 20 MG/ML VIAL IV PRN ×2 (07:46→19:06)
[2019-09-24] MEDS: FLUTICASONE/VILANTEROL 100/25MCG 14 PUFFS/INHALER INH SCH (07:52)
[2019-09-24 08:20] LABS: Basophils # (auto) 0.01 K/uL (0-0.2); Basophils % (auto) 0.2 %; Eosinophils # (auto) 0.03 K/uL (0-0.5); Eosinophils % (auto) 0.5 %; Hematocrit (blood only) 47.3 % (42-52); Hemoglobin 15.7 g/dL (14.0-18.0); Immature Granulocytes # (auto) 0.04 K/uL (0.00-0.02); Immature Granulocytes % (auto) 0.7 %; Lymphocytes # (auto) 0.86 K/uL (1.2-3.4); Lymphocytes % (auto) 15.3 %; Mean Corpuscular Hemoglobin 32.4 pg (25-34); Mean Corpuscular Hgb Conc 33.2 g/dL (32-36); Mean Corpuscular Volume 97.7 fL (80-100); Mean Platelet Volume 9.7 fL (7.4-10.4); Monocytes # (auto) 0.45 K/uL (0.11-0.59); Neutrophils # (auto) 4.23 K/uL (1.4-6.5); Neutrophils % (auto) 75.3 %; Platelet Count 128 K/uL (130-400); RDW Coefficient of Variation 15.2 % (11.5-14.5); RDW Standard Deviation 54.2 fL (36.4-46.3); Red Blood Count 4.84 M/uL (4.7-6.1); White Blood Count 5.62 K/uL (4.8-10.8)
[2019-09-24 08:39] LABS: Partial Thromboplastin Ratio 1.9
[2019-09-24 08:43] LABS: Partial Thromboplastin Time 52.1 Seconds (21.0-31.0)
[2019-09-24 08:44] LABS: BUN Creatinine Ratio 17.4 (10-20); Calcium 8.8 mg/dl (8.5-10.1); Creatinine Clr Calc Pharmacy 37.7 ml/min; Est GFR (Non-African American) 47.4; Magnesium 2.1 mg/dl (1.8-2.4); Potassium 3.5 mmol/L (3.5-5.1)
[2019-09-24 08:48] LABS: Phosphorus 2.6 mg/dl (2.5-4.9)
[2019-09-24] MEDS: ASPIRIN 81 MG ECTAB PO SCH (08:52)
[2019-09-24] MEDS: PANTOprazole 40 MG TAB PO SCH ×2 (08:53→20:39)
[2019-09-24] MEDS: AMLODIPINE BESYLATE 5 MG TAB PO SCH (08:53)
[2019-09-24] MEDS: METOPROLOL TARTRATE 25 MG TAB PO SCH (08:53)
[2019-09-24] MEDS: DOXYCYCLINE HYCLATE 100 MG CAP PO SCH (08:53)
[2019-09-24] MEDS: ATORVASTATIN 40 MG TAB PO SCH (09:14)
[2019-09-24] MEDS: HEPARIN SODIUM/DEXTROSE 25,000 UNITS/500 ML BAG IV SCH ×2 (13:10→17:07)
--- NOTE | 2019-09-24 14:29 | Hospitalist Progress Note ---
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 A flutter w/ RVR -admit to telemetry -K, mag, TSH, and lyme all noted to be normal -apparently pt had been taking large doses of metoprolol and verapamil at home, unsure exact dose. Held this admission 2/2 concerns of bradycardia. Upon arrival here he was in slow a.fib -started on metoprolol tartrate at 25 mg p.o. b.i.d.. Titrate upward to 50 twice daily today -Stopping AC with Heparin gtt as it does not appear patient will be going for pacemaker this admission. Will transition to Eliquis 5 mg twice daily within 2 hours of stopping drip. Discussed this with pharmacy -ECHO- Normal left ventricular size and systolic function. EF 60-65%. No regional wall motion abnormalities visualized. Moderate concentric left ventricular hypertrophy. No significant valvular stenosis/regurgitation. -Appreciate Cardiology consult Junctional Rhythm/Bradycardia/Tachy-mendy syndrome -suspect his weakness was due in part to the significant bradycardia seen on admission. Had second-degree AV block on presentation -initially held home AV marilyn agents metoprolol, verapamil. Has since developed a flutter with RVR suggesting tachy mendy syndrome -AV marilyn blocking agent with metoprolol started as above. Will cont hold verapamil -Likely medication induced. We will try holding off on pacemaker and adjusting dosages of medications as needed TANNER- resolved -Likely from hypoperfusion from poor forward flow secondary to bradycardia - No obstruction seen on CT -requested records from [facility] for comparison -daily BMP -Can restart CAR inhibitor on d/c. Have to ascertain the exact medication and dose as patient is unsure CAD/CVA Hx -asymptomatic -Cont asa 81, atorvastatin 40, metoprolol as above -DC plavix as his stent was greater than 1 year ago -AC as above -follows with Dr. Reyna HTN -Holding CAR inhibitor due to TANNER initially, this can now be restarted. Unsure of home dose. Started on amlodipine 5mg daily in interim -Holding CCB due to bradycardia. Metroprolol as above Sarcoidosis: -Follows with pulmonary in [place] -CT chest appears to show old, chronic findings some of which might be 2/2 sarcoid. ?pneumonia process vs are findings chronic -CRP elevated at 5.4 -have requested records from pulmonary office in [place] to compare any old CT scans (May 09, 2019)--showing pulmonary fibrosis and extensive calcified hilar and mediastinal nodes that are consistent with clinical diagnosis of sarcoidosis. -We will discontinue doxy 100 bid coverage and IV Rocephin as below GERD -cont PPI but increase to BID dosing given the abnormal gastric wall seen on CT abd/pelvis Sleep apnea: -Cont CPAP at HS with O2 blended to maintain O2 sats >88% while sleeping. Colon cancer: -s/p hemicolectomy. -CT Abd shows clean anastomosis. History of Billroth I operation: -CT Abd: Wall thickening with mild surrounding stranding involves the gastric pylorus. Additionally, there are adjacent mildly prominent lymph nodes. This finding may reflect an area of gastritis -will arrange for outpt GI so that can possibly evaluate with endoscopy to exclude an underlying mucosal lesion UTI -Culture growing Staphylococcus aureus, pansensitive -Stop IV Rocephin today. Transition to p.o. Bactrim FEN/GI: HH Diet DVT prophylaxis: Eliquis Full Code Dispo: Med Tele. PT/OT Evals. Admission and Anticipated Discharge Date Admission Date: September 22, 2019 Supervising Physician Co-Signing Physician Notes I personally examined the patient and verified all lyles points of history and exam, discussed case, and agree with decision making with Dr Polanco. feeling ok hopes to go home tomorrow. cardiology input appreciated. vitals noted nad heent nc at mmm breathing unlabored no accessory muscles good effort skin no rashes no pallor or icterus neuro no focal deficits afib/ RVR/ rate control issues - continue to titrate med management - follow - hopefully home tomorrow Subjective 84-year-old male found in bed this a.m. in no acute distress. No acute overnight events. Patient notes that he does not have any chest pain, shortness of breath, palpitations, syncope or near syncope. Awaiting echo today. EKG this a.m. shows A. fib with RVR. Patient tolerated p.o. intake. Patient with no other acute concerns or complaints. Review of Systems Review of Systems: All systems reviewed & are unremarkable except as noted in HPI & below Physical Exam Constitutional: WD/WN, vitals as above Eyes: PERRL, conjunctivae normal, anicteric sclerae ENMT: external ear and nose normal, oropharynx normal Respiratory: normal respiratory effort; no respiratory distress Auscultation: + crackles (mild RLL) Cardiovascular: Rate/Rhythm: + tachycardic and + irregularly irregular Heart Sounds: + murmur (LSB holosystolic) Gastrointestinal (Abdomen): Inspection/Auscultation: + abdomen distended and normal bowel sounds Percussion/Palpation: abdomen nontender Skin: + mottling (chronic venous stasis changes LE b/l) Psychiatric: A+Ox3, euthymic affect Results & Data Results & Data ([facility]) Vital Signs (Past 12 Hours) Vital Signs Temp Pulse Pulse Resp BP BP Pulse Ox 09/24/19 11:42 36.4 C L 88 20 113/78 97 09/24/19 08:51 161/81 H 09/24/19 08:01 36.4 C L 106 H 20 179/113 H 178/113 H 95 09/24/19 07:50 107 H 09/24/19 03:44 36.6 C 108 H 20 112/64 97 09/24/19 02:56 55 L 18 95 Laboratory Results Laboratory Results - last 24 hr 09/23/19 09/24/19 09/24/19 19:17 01:03 08:00 WBC 5.62 RBC 4.84 Hgb 15.7 Hct 47.3 MCV 97.7 MCH 32.4 MCHC 33.2 RDW Std Deviation 54.2 H RDW Coeff of Gokul 15.2 H Plt Count 128 L MPV 9.7 Immature Gran % (Auto) 0.7 Neut % (Auto) 75.3 Lymph % (Auto) 15.3 [place] % (Auto) 8.0 Eos % (Auto) 0.5 Baso % (Auto) 0.2 Neut # (Auto) 4.23 Lymph # (Auto) 0.86 L [place] # (Auto) 0.45 Eos # (Auto) 0.03 Baso # (Auto) 0.01 Immature Gran # (Auto) 0.04 H APTT 78.5 H* 76.5 H* PTT Ratio 2.8 2.7 Sodium Potassium Chloride Carbon Dioxide Anion Gap BUN Creatinine Est Cr Clr Drug Dosing Est GFR ( Amer) Est GFR (Non-Af Amer) BUN/Creatinine Ratio Glucose Calcium Phosphorus Magnesium 09/24/19 09/24/19 08:00 08:00 WBC RBC Hgb Hct MCV MCH MCHC RDW Std Deviation RDW Coeff of Gokul Plt Count MPV Immature Gran % (Auto) Neut % (Auto) Lymph % (Auto) [place] % (Auto) Eos % (Auto) Baso % (Auto) Neut # (Auto) Lymph # (Auto) [place] # (Auto) Eos # (Auto) Baso # (Auto) Immature Gran # (Auto) APTT 52.1 H* PTT Ratio 1.9 Sodium 142 Potassium 3.5 Chloride 108 H Carbon Dioxide 28 Anion Gap 6.0 BUN 24 H Creatinine 1.36 Est Cr Clr Drug Dosing 37.7 Est GFR ( Amer) 55.0 Est GFR (Non-Af Amer) 47.4 BUN/Creatinine Ratio 17.4 Glucose 97 Calcium 8.8 Phosphorus 2.6 Magnesium 2.1 Medications Administered Current Inpatient Medications Acetaminophen (Tylenol) 650 mg PO Q4H PRN PRN Reason: pain/fever Stop: 10/21/19 20:06 Last Admin: 09/23/19 13:07 Dose: 650 mg Documented by: Al Hydrox/Mg Hydrox/Simethicone (Maalox) 30 ml PO Q6H PRN PRN Reason: Dyspepsia Stop: 10/21/19 20:06 Albuterol (Ventolin Hfa) 1 puffs INH QIDR PRN PRN Reason: Shortness Of Breath Or Wheezing Stop: 10/22/19 06:59 Last Admin: 09/23/19 16:13 Dose: 1 puffs Documented by: Amlodipine Besylate ([facility]asc) [facility] Stop: 10/23/19 08:59 Last Admin: 09/24/19 08:53 Dose: 5 mg Documented by: Aspirin (Ecotrin Ectab) [facility] [place] Stop: 10/22/19 08:59 Last Admin: 09/24/19 08:52 Dose: 81 mg Documented by: Atorvastatin Calcium (Lipitor) 40 mg PO [facility] Stop: 10/24/19 08:59 Last Admin: 09/24/19 09:14 Dose: 40 mg Documented by: Doxycycline Hyclate (Vibramycin) 100 mg PO BID [facility] Stop: 09/29/19 16:24 Last Admin: 09/24/19 08:53 Dose: 100 mg Documented by: Fluticasone/Vilanterol (Breo Ellipta 100/25 Mcg Inh) 1 puffs INH DAILY [facility] Stop: 10/22/19 08:59 Last Admin: 09/24/19 07:52 Dose: 1 puffs Documented by: Hydralazine HCl (Hydralazine Hcl) 10 mg IV Q8 PRN PRN Reason: Blood Pressure - High Stop: 10/21/19 20:09 Last Admin: 09/24/19 07:46 Dose: 10 mg Documented by: Ceftriaxone Sodium 2,000 mg/ (Dextrose) 70 mls @ 100 mls/hr IV Q24H [facility]; Protocol Stop: 09/29/19 15:59 Last Admin: 09/24/19 15:43 Dose: 100 mls/hr Documented by: Heparin Sodium/Dextrose (Heparin Sodium/Dextrose) 25,000 units in 500 mls @ 18 mls/hr IV .Q24H [facility]; Protocol Stop: 10/23/19 12:29 Last Titration: 09/24/19 14:47 Dose: 900 units/hr, 18 mls/hr Documented by: Ipratropium [place] (Atrovent Hfa) 1 puffs INH QIDR PRN PRN Reason: Shortness Of Breath Or Wheezing Stop: 10/22/19 06:59 Last Admin: 09/23/19 16:13 Dose: 1 puffs Documented by: Metoprolol Tartrate (Lopressor) 5 mg IV Q4 PRN PRN Reason: sbp> 185, dbp >95, HR >120 Stop: 10/21/19 20:09 Metoprolol Tartrate (Lopressor) 50 mg PO BID [facility] Stop: 10/24/19 20:59 Nitroglycerin (Nitrostat) 0.4 mg SL UD PRN PRN Reason: Chest Pain Stop: 10/21/19 20:06 Ondansetron HCl (Zofran) 4 mg IV Q6H PRN PRN Reason: Nausea Stop: 10/21/19 20:06 Pantoprazole Sodium (Protonix) 40 mg PO BID [facility] Stop: 10/22/19 20:59 Last Admin: 09/24/19 08:53 Dose: 40 mg Documented by: Polyethylene Glycol (Miralax Powder Packet) 17 gm PO DAILY PRN PRN Reason: Constipation Stop: 10/21/19 20:06 Terazosin HCl (Hytrin) 1 mg PO HS [facility] Stop: 10/22/19 20:59 Last Admin: 09/23/19 19:52 Dose: 1 mg Documented by: Resident Activity Tracking Resident Involvement: Resident Care Provided Care Provided: Adult Hospital Medicine
[2019-09-24] MEDS: cefTRIAXone SODIUM 2,000 MG in DEXTROSE 5% 50 ML IV SCH (15:43)
--- NOTE | 2019-09-24 15:43 | Cardiology Progress Note ---
Date of Service September 24, 2019 Assessment & Plan (1) Atrial flutter: He has atrial flutter and I believe is been treated for it for some time although I do not have good records. I believe he has been on metoprolol and verapamil and he thinks the dose is not changed in a number of years. It is possible that he needs a lower dose now, and we may be able to control his rhythm without a pacemaker. I am going to go up on his beta-devon but hold off on a calcium devon. (2) AV block: He had second-degree AV block on presentation. This was likely medication related, as long as we can get by with lower doses of medications that he had before perhaps we can avoid a pacemaker. (3) Coronary artery disease: Symptomatically stable, no evidence of ischemia. (4) Hypertension: His blood pressure appears labile, currently it is good but has been elevated for the most part. Increased AV marilyn medications. Admission and Anticipated Discharge Date Admission Date: September 22, 2019 Subjective Patient's history reviewed. I talked to him about his medications and he is going to arrange to have a list brought in from home, it will be very helpful to know what doses of medications he was on and that does not seem to be in our records. He is feeling well now, he has not had lightheadedness or dizziness here in the hospital he is not having awareness of his rapid heart rate. He is anxious to go home but understands that we need to try to get his rhythm under control. He is having no cardiac symptoms. Physical Exam Physical Exam: Constitutional: Alert, cooperative and in no distress. HEENT: Unremarkable Neck: No jugular venous distention, carotid pulses are irregular but otherwise normal and equal bilaterally without bruits. Pulmonary: Clear to auscultation bilaterally. Cardiac: Irregular rapid rhythm with no murmur, gallop or rub. Abdomen: Soft, nontender with normal bowel sounds. Extremities: No edema. Distal pulses intact. Neurologic: No focal findings. Gait is steady. Skin: No rash, ecchymoses or petechiae. Results & Data ([facility]) Vital Signs (Past 12 Hours) Vital Signs Temp Pulse Pulse Resp BP BP Pulse Ox 09/24/19 15:09 72 09/24/19 11:42 36.4 C L 88 20 113/78 97 09/24/19 08:51 161/81 H 09/24/19 08:01 36.4 C L 106 H 20 179/113 H 178/113 H 95 09/24/19 07:50 107 H 09/24/19 03:44 36.6 C 108 H 20 112/64 97 Laboratory Results Coagulation 09/23/19 09/24/19 09/24/19 Range/Units 19:17 01:03 08:00 APTT 78.5 H* 76.5 H* 52.1 H* (21.0-31.0) Seconds CBC 09/24/19 Range/Units 08:00 WBC 5.62 (4.8-10.8) K/uL RBC 4.84 (4.7-6.1) M/uL Hgb 15.7 (14.0-18.0) g/dL Hct 47.3 (42-52) % Plt Count 128 L (130-400) K/uL Neut # (Auto) 4.23 (1.4-6.5) K/uL Lymph # (Auto) 0.86 L (1.2-3.4) K/uL [place] # (Auto) 0.45 (0.11-0.59) K/uL Eos # (Auto) 0.03 (0-0.5) K/uL Baso # (Auto) 0.01 (0-0.2) K/uL Comprehensive Metabolic Panel 09/24/19 Range/Units 08:00 Sodium 142 (136-145) mmol/L Potassium 3.5 (3.5-5.1) mmol/L Chloride 108 H (98-107) mmol/L Carbon Dioxide 28 (21-32) mmol/L BUN 24 H (7-18) mg/dl Creatinine 1.36 (0.6-1.4) mg/dl Glucose 97 (70-99) mg/dl Calcium 8.8 (8.5-10.1) mg/dl Intake and Output 09/24/19 09/24/19 09/24/19 06:59 14:59 22:59 Intake Total 214.40 / 1102.40 443.1 / 443.1 Output Total 495 / 1770 300 / 300 Balance -280.60 / -667.60 143.1 / 143.1 Intake: IV 214.40 / 452.40 143.1 / 143.1 HEPARIN SODIUM/DEXTROSE 25,000 214.40 / 382.40 143.1 / 143.1 units In 500 ml @ 900 UNITS/HR 18 mls/hr IV .Q24H [facility] Rx#: [id number] Oral 300 / 300 Output: Urine 495 / 1770 300 / 300 Other: Other Intake Source Npo npo am Weight 75.8 kg Diagnostic Findings Telemetry: Since shortly after admission his heart rate has generally been rapid, currently he is running between about 101 120 bpm without any bradycardia for the past 24 hours. PG Care Time/CCT Total # of Minutes Spent Total Time Spent with Patient: Total time spent is greater than 50% in coordination of care (as documented) at patient's floor/unit and/or counseling patient: Coding Level of Care Code 49210 Subseq Hosp Care Lvl 2 Diagnoses Atrial flutter I48.92 AV block I44.30 Coronary artery disease I25.10 Coronary Disease-Associated Artery/Lesion type: [place] artery [place] vs. transplanted heart: [place] heart Associated angina: without angina Hypertension I10 Hypertension type: essential hypertension (1) Coronary artery disease Coronary Disease-Associated Artery/Lesion type: [place] artery [place] vs. transplanted heart: [place] heart Associated angina: without angina Qualified Code(s): I25.10 - Atherosclerotic heart disease of [place] coronary artery without angina pectoris (2) Hypertension Hypertension type: essential hypertension Qualified Code(s): I10 - Essential (primary) hypertension
[2019-09-24] MEDS ORDERED: METOPROLOL TARTRATE 25 MG TAB PO STA (15:44)
[2019-09-24] MEDS: APIXABAN 5 MG TABLET PO SCH (17:34)
[2019-09-24] MEDS ORDERED: APIXABAN 5 MG TABLET PO SCH (18:00)
--- NOTE | 2019-09-24 19:42 | Billing Data ---
Date of Service September 24, 2019 Coding Level of Care Code 87339 Subseq Hosp Care Lvl 2
[2019-09-24] MEDS: METOPROLOL TARTRATE 50 MG TAB PO SCH (20:39)
[2019-09-24] MEDS: TERAZOSIN HCL 1 MG CAP PO SCH (20:39)
[2019-09-24] MEDS: SULFAMETHOXAZOLE/TRIMETHOPRIM DS 800/160MG TAB PO SCH (20:40)
[2019-09-25 06:49] LABS: Basophils # (auto) 0.01 K/uL (0-0.2); Basophils % (auto) 0.2 %; Eosinophils # (auto) 0.06 K/uL (0-0.5); Eosinophils % (auto) 1.4 %; Hemoglobin 14.1 g/dL (14.0-18.0); Immature Granulocytes # (auto) 0.02 K/uL (0.00-0.02); Immature Granulocytes % (auto) 0.5 %; Lymphocytes # (auto) 0.72 K/uL (1.2-3.4); Mean Corpuscular Hgb Conc 32.8 g/dL (32-36); Mean Corpuscular Volume 97.7 fL (80-100); Mean Platelet Volume 9.9 fL (7.4-10.4); Monocytes # (auto) 0.38 K/uL (0.11-0.59); Neutrophils # (auto) 3.05 K/uL (1.4-6.5); Neutrophils % (auto) 71.9 %; Platelet Count 124 K/uL (130-400); RDW Coefficient of Variation 15.4 % (11.5-14.5); RDW Standard Deviation 55.8 fL (36.4-46.3); White Blood Count 4.24 K/uL (4.8-10.8)
[2019-09-25 07:04] LABS: Partial Thromboplastin Ratio 1.2; Partial Thromboplastin Time 32.3 Seconds (21.0-31.0)
[2019-09-25 07:19] LABS: BUN Creatinine Ratio 20.8 (10-20); Calcium 8.3 mg/dl (8.5-10.1); Creatinine Clr Calc Pharmacy 41.7 ml/min; Est GFR (African American) 62.1; Est GFR (Non-African American) 53.6; Magnesium 2.2 mg/dl (1.8-2.4); Potassium 3.6 mmol/L (3.5-5.1)
[2019-09-25 07:23] LABS: Phosphorus 3.4 mg/dl (2.5-4.9)
[2019-09-25] MEDS: FLUTICASONE/VILANTEROL 100/25MCG 14 PUFFS/INHALER INH SCH (08:16)
[2019-09-25] MEDS: APIXABAN 5 MG TABLET PO SCH (08:17)
[2019-09-25] MEDS: ASPIRIN 81 MG ECTAB PO SCH (08:17)
[2019-09-25] MEDS: ATORVASTATIN 40 MG TAB PO SCH (08:17)
[2019-09-25] MEDS: SULFAMETHOXAZOLE/TRIMETHOPRIM DS 800/160MG TAB PO SCH (08:18)
[2019-09-25] MEDS: PANTOprazole 40 MG TAB PO SCH (08:18)
[2019-09-25] MEDS: METOPROLOL TARTRATE 50 MG TAB PO SCH (08:18)
[2019-09-25] MEDS: AMLODIPINE BESYLATE 5 MG TAB PO SCH (08:18)
--- NOTE | 2019-09-25 10:34 | Discharge Summary ---
Date of Service September 25, 2019 Admission HPI Per Admitting Provider 84-year-old male answer from [facility] emergency department where he presented with dizziness was found to have slightly worsening renal function with a creatinine 2.4 and be a junctional bradycardia at a rate of 50 with a sustained blood pressure. According to the emergency room doctor the part time/hospitalist on duty did not feel comfortable keeping the patient in their facility they did not have access to specialist and requested transfer. Emergency room doctor conversed with me and said the patient was stable at this point time did not require any immediate attention and did recommend possibly hydrating the patient and following his laboratories at their facility however this was refused. I did accept the patient for observation I was concerned that this was a lateral transfer. Patient self is in no distress he is doing slightly better than when he presented to the emergency department their work-up included laboratories which showed a creatinine of 2.4 potassium 5.0 bicarb 26 stable CBC stable liver function tests normal magnesium negative troponin EKG with sinus bradycardia narrow complex a BNP of 1080 CT head negative for acute changes but with chronic volume loss Dopplers of lower extremities without DVT as patient has some swelling in his right leg which is chronic and a chest x-ray showing old scarring changes from his history of sarcoidosis. Principal Diagnosis A flutter Discharge Exam Constitutional WD/WN, vitals as above Eyes PERRL, conjunctivae normal, anicteric sclerae ENMT external ear and nose normal, oropharynx normal Respiratory normal respiratory effort; no respiratory distress Cardiovascular Rate/Rhythm: regular rate and regular rhythm Heart Sounds: + murmur (LSB holosystolic) Gastrointestinal (Abdomen) Inspection/Auscultation: + abdomen distended and normal bowel sounds Percussion/Palpation: abdomen nontender Skin + mottling (chronic venous stasis changes LE b/l) Psychiatric A+Ox3, euthymic affect Discharge Data Allergies Allergy/AdvReac Type Severity Reaction Status Date / Time No Known Allergies Allergy Unverified 09/21/19 21:08 Consultations 09/22/19 12:41 Consult Health Information Management Routine 09/22/19 12:43 Consult Cardiology Routine 09/24/19 18:09 Consult LILY contract graphic designer Routine Ordered Studies 09/22/19 08:00 CT abd pelvis wo con Routine 09/22/19 12:38 CT chest wo con Routine 09/23/19 14:00 US arterial duplex LE BI Routine Hospital Course (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 The following is the medical management during stay here: A flutter w/ RVR -admitted to telemetry -K, mag, TSH, and lyme all noted to be normal -apparently pt had been taking large doses of metoprolol and verapamil at home, unsure exact dose. Held this admission 2/2 concerns of bradycardia. Upon arrival here he was in slow a.fib -started on metoprolol tartrate at 25 mg p.o. b.i.d.. Titrated upward to 50 twice daily -Initially on AC with Heparin gtt. Transitioned to Eliquis 5 mg twice daily -ECHO- Normal left ventricular size and systolic function. EF 60-65%. No regional wall motion abnormalities visualized. Moderate concentric left ventricular hypertrophy. No significant valvular stenosis/regurgitation. -Appreciate Cardiology consult--did not feel patient was a candidate for pacemaker at this time. Patient will follow-up with cardiology October 03, 2019 for ongoing management Junctional Rhythm/Bradycardia/Tachy-mendy syndrome -suspect his weakness was due in part to the significant bradycardia seen on admission. Had second-degree AV block on presentation -initially held home AV marilyn agents metoprolol, verapamil. Had since developed a flutter with RVR suggesting tachy mendy syndrome -AV marilyn blocking agent with metoprolol started as above. Will cont hold verapamil -Likely medication induced. We will try holding off on pacemaker and adjusting dosages of medications as needed TANNER- resolved -Likely from hypoperfusion from poor forward flow secondary to bradycardia - No obstruction seen on CT -Can restart CAR inhibitor on d/c CAD/CVA Hx -asymptomatic -Cont asa 81, atorvastatin 40, metoprolol as above -DC plavix as his stent was greater than 1 year ago -AC as above -follows with Dr. Reyna HTN -Holding CAR inhibitor due to TANNER initially, this can now be restarted. Unsure of home dose. Started on amlodipine 5mg daily in interim, pt will switch back to car inhibitor on d/c -Holding CCB due to bradycardia. Metoprolol as above Sarcoidosis: -Follows with pulmonary in [place] -CT chest appears to show old, chronic findings some of which might be 2/2 sarcoid. ?pneumonia process vs are findings chronic -CRP elevated at 5.4 -requested records from pulmonary office in [place] to compare any old CT scans (May 09, 2019)--showing pulmonary fibrosis and extensive calcified hilar and mediastinal nodes that are consistent with clinical diagnosis of sarcoidosis. -We discontinued doxy 100 bid coverage and IV Rocephin as below as this does not appear to be infectious etiology GERD -cont PPI but increase to BID dosing given the abnormal gastric wall seen on CT abd/pelvis Sleep apnea: -Cont CPAP at HS with O2 blended to maintain O2 sats >88% while sleeping. Colon cancer: -s/p hemicolectomy. -CT Abd shows clean anastomosis. History of [place] I operation: -CT Abd: Wall thickening with mild surrounding stranding involves the gastric pylorus. Additionally, there are adjacent mildly prominent lymph nodes. This finding may reflect an area of gastritis -will arrange for outpt GI so that can possibly evaluate with endoscopy to exclude an underlying mucosal lesion UTI -Culture growing Staphylococcus aureus, pansensitive -Stopped IV Rocephin. Transition to p.o. Bactrim for 7 additional days DVT prophylaxis: Eliquis . At time of discharge patient had no other acute concerns or complaints. Total Time Total Time Spent Total Time Spent (In Minutes): <30 Discharge Plan Discharge Items Patient Disposition: Home - Self-Care Reason For Visit: SYMPTOMATIC BRADYCARDIA Discharge Diagnosis: Atrial flutter Activity: Per Instructions section Non-emergency contact: Primary Care Provider Call non-emergency contact if: you have any medication questions and your symptoms worsen Follow-up/Referrals: Yeyo Robles MD [Physician] - 10/03/19 11:30 am (Please, follow up at [facility] Office with Dr. Robles on October 02 at 11:30 am (arrive 11:15 am). *The office is located in [address] of [facility] [place], [facility]. If you need to change this appointment, call the office at [phone].) Joss Vasques [Primary Care Provider] - 09/30/19 11:30 am (Please, follow up at Dr. Vasques's office with his physician senior sales assistant, Luis, on MondaySeptember 29 at 11:30 am. *If you need to change this appointment, call their office at [phone].) Diet: Heart Healthy Addtl Attending Provider Instructions: You were admitted with concerns of dizziness and low heart rate. This low heart rate alternated with periods of fast heart rate. Please follow-up with the below instructions on discharge: We have stopped your medication verapamil, you will no longer be taking this. You will continue with medication metoprolol tartrate at 50 mg twice a day You will start a new medication for blood thinner called Eliquis 5 mg twice a day. This has been sent to your pharmacy You will stop medication Plavix, please do not take this anymore as it is not required You have follow-up with cardiology at date listed above October 03, 2019 You follow-up with your PCP on date listed above September 30, 2019 You will continue antibiotic for your urinary infection: Bactrim for 7 more days. This has been sent to your pharmacy Please continue all your other medications as before Pending Studies at Discharge: No Stand-Alone Forms: My [facility], Smoking Cessation Medications and DC Order Prescriptions: New Eliquis 5 mg tablet 5 mg PO BID Qty: 30 RF: 0 sulfamethoxazole-trimethoprim [Bactrim DS] 800-160 mg tablet 2 tab PO BID 7 Days Qty: 28 RF: 0 metoprolol tartrate 50 mg tablet 50 mg PO BID Qty: 30 RF: 0 Discharge Orders: Discharge Order (Routine); Ordered 09/25/19 Ordered By: Torin Atkins Admission Data Admit Date/Time: 09/22/19 16:22 Attending Provider: John Redd Admit Provider: Reji Wang Primary Care Provider: Joss Vasques Other Providers: Froy Hood ; Nito Lynn Other Interventions: Discharge Summary Assessment (RN) Last Done: 09/25/19 12:56 DC Date/Time DO NOT enter until pt leaves facility: 09/25/19 14:30 Supervising Physician Co-Signing Physician Notes I personally examined the patient and verified all lyles points of history and exam, discussed case, and agree with decision making with Dr Atkins. feeling good feels up to going home vitals noted nad heent nc at mmm breathing unlabored no accessory muscles good effort skin no rashes no pallor or icterus neuro no focal deficits afib/ RVR/ rate control issues - now doing better, stable for home, close f/u. discussed following HR at home as well UTI - bactrim - clarified and dr atkins will be calling to reduce to 1 bid otherwise as above, stable for home Resident Activity Tracking Resident Involvement: Resident Care Provided Care Provided: Adult Hospital Medicine
--- NOTE | 2019-09-25 12:43 | Cardiology Progress Note ---
Date of Service September 25, 2019 Assessment & Plan (1) Atrial flutter: He has atrial flutter and I believe is been treated for it for some time although I do not have good records. I believe he has been on metoprolol and verapamil and he thinks the dose is not changed in a number of years. It is possible that he needs a lower dose now, and on what I believe is a reduced AV marilyn blocking regimen (metoprolol tartrate 50 mg twice daily only) he now has good control of his heart rate since yesterday, he has had both sinus rhythm and atrial flutter controlled heart rate on telemetry. I believe this is sufficient and agree that he can go home. I did caution him that he needs to take his c urrent medication list in with him next time he sees his doctor, hopefully he will not end up back on what he was on at home. (2) AV block: He had second-degree AV block on presentation. This was likely medication related, as long as we can get by with lower doses of medications than he had before perhaps we can avoid a pacemaker. This can be followed as an outpatient. (3) Coronary artery disease: Symptomatically stable, no evidence of ischemia. No indication for further evaluation. (4) Hypertension: His blood pressure appears labile, currently it is high for the most part although in the normal range sometimes. This can be followed as an outpatient. Admission and Anticipated Discharge Date Admission Date: September 22, 2019 Subjective He is feeling well today, he has no sensation of his heart rhythm and no lightheadedness or dizziness. He still has not brought in his home medication, he keeps telling me that "they have it in the office" by do not believe we have an accurate representation of his home medications. Physical Exam Physical Exam: Constitutional: Alert, cooperative and in no distress. HEENT: Unremarkable Neck: No jugular venous distention, carotid pulses are normal and equal bilaterally without bruits. Pulmonary: Clear to auscultation bilaterally. Cardiac: Regular rhythm with no murmur, gallop or rub. Abdomen: Soft, nontender with normal bowel sounds. Extremities: No edema. Distal pulses intact. Neurologic: No focal findings. Gait was not tested. Skin: No rash, ecchymoses or petechiae. Results & Data ([facility]) Vital Signs (Past 12 Hours) Vital Signs Temp Pulse Pulse Resp BP BP Pulse Ox 09/25/19 11:28 36.4 C L 72 18 158/87 H 95 09/25/19 08:00 36.5 C 79 18 166/81 H 97 09/25/19 07:03 79 09/25/19 03:21 79 14 94 09/25/19 02:47 36.5 C 80 18 137/88 97 09/25/19 01:13 84 Diagnostic Findings Telemetry: He is predominantly in sinus rhythm for the past 24 hours, he does have intermittent atrial flutter however the rate in sinus rhythm and during atrial flutter is in the 70s to 80s. No significant tachycardia or bradycardia in the past 24 hours. PG Care Time/CCT Total # of Minutes Spent Total Time Spent with Patient: Total time spent is greater than 50% in coordination of care (as documented) at patient's floor/unit and/or counseling patient: Coding Level of Care Code 39955 Subseq Hosp Care Lvl 2 Diagnoses Atrial flutter I48.92 AV block I44.30 Coronary artery disease I25.10 Coronary Disease-Associated Artery/Lesion type: [place] artery [place] vs. transplanted heart: [place] heart Associated angina: without angina Hypertension I10 Hypertension type: essential hypertension (1) Coronary artery disease Coronary Disease-Associated Artery/Lesion type: [place] artery [place] vs. transplanted heart: [place] heart Associated angina: without angina Qualified C ode(s): I25.10 - Atherosclerotic heart disease of [place] coronary artery without angina pectoris (2) Hypertension Hypertension type: essential hypertension Qualified Code(s): I10 - Essential (primary) hypertension
--- NOTE | 2019-09-25 16:02 | Billing Data ---
Date of Service September 25, 2019 Coding Level of Care Code D/C Day Management <30 mins
== END 2019-09-25 14:30 | disposition home or self-care (01) | DRG 309 ==
LOC: 2N → SUATTDRO 19:36